=== PATIENT | male | born 1965 | race Caucasian/White ===

== ENCOUNTER 2018-12-23 19:22 | Emergency (ER) | payer BC ==
[~2018-12-23] VITALS: Ht 180.3 cm; Wt 90.3 kg
[2018-12-23 19:26] VITALS: BP_SYST 182; BP_SYST 195; BP_DIAS 115; BP_DIAS 123
--- NOTE | 2018-12-23 19:32 | NUR ---
53 Y/O M PRESENTED TO ED WITH C/O R TOE 3RD TOE PAIN X1 MONTH. DENIES PAIN AT THIS TIME. PT FEELS NUMBNESS AND TINGLING OF BILATERAL FEET. PER PT "I HAD THE BLISTER FOR 1 MONTH AND IT OPENNED ON ITS ON. BUT I'VE BEEN KEEPING IT CLEAN." OPEN BLISTER NOTED TO R 3RD DIGIT. EDEMA AND ERYTHEMA NOTED. +CMS. ERMD NOTIFIED. FAMILY AT BEDSIDE. WILL CONTINUE TO MONITOR.
--- NOTE | 2018-12-23 19:37 | NUR ---
TO ED 04. REPORT OT LIYA DURBIN.
[2018-12-23] MEDS ORDERED: CEPHALEXIN 500 MG CAP PO ONE (19:40)
[2018-12-23] MEDS ORDERED: SULFAMETH/TRIMETH DS 800/160MG 1 TAB PO ONE (19:40)
[2018-12-23] MEDS ORDERED: cloNIDine 0.1 MG TAB PO ONE (19:40)
--- NOTE | 2018-12-23 19:40 | NUR ---
PT HYPERTENSIVE, BP 185/111. DR. KAUR MADE AWARE.
--- NOTE | 2018-12-23 20:15 | NUR ---
PT BP DECREASED TO 155/91. DR KAUR MADE AWARE.
--- NOTE | 2018-12-23 20:21 | NUR ---
Patient discharged with v/s stable. Written and verbal after care instructions given and explained. Patient alert, oriented and verbalized understanding of instructions. Ambulatory with steady gait. All questions addressed prior to discharge. ID band removed. Rx of Keflex and Bactrim given. Patient educated on indication of medication including possible reaction and side effects. Instructed to follow up with PCP for elevated blood pressure. Opportunity to ask questions provided and answered.
[2018-12-23 20:23] VITALS: BP 155/91
== END 2018-12-23 20:21 | disposition home or self-care (01) ==
LOC: MED 19:22
DX: L03.031 Cellulitis of right toe (principal); I10 Essential (primary) hypertension
CPT/HCPCS: 99284